=== PATIENT | female | born 1970 | race Caucasian/White ===

== ENCOUNTER 2024-03-11 21:02 | Inpatient (IN) | payer MEDICAID ==
[~2024-03-11] VITALS: Ht 170.2 cm; Wt 87.5 kg
[2024-03-11] MEDS ORDERED: HALOPERIDOL 5 MG TABLET PO PRN (21:15)
[2024-03-11] MEDS ORDERED: FLUO-418 PO (23:45)
[2024-03-12] MEDS: ZOLPIDEM TARTRATE 10 MG TABLET PO PRN (04:16)
[2024-03-12 04:33] VITALS: BP 128/70; PULSE 62; RESP 17; TEMP 97.5; O2SAT 98
[2024-03-12] MEDS ORDERED: CloNIDine HCL 0.1 MG TABLET PO PRN (06:30)
[2024-03-12] MEDS ORDERED: IBUPROFEN 400 MG TABLET PO PRN (06:30)
[2024-03-12] MEDS ORDERED: ALBUTEROL SULFATE HFA 90 MCG/PUFF 8 GM INHALER IH PRN (06:30)
[2024-03-12] MEDS ORDERED: MAGNESIUM HYDROXIDE SUSPENSION 30 ML UDCUP PO PRN (06:30)
[2024-03-12] MEDS ORDERED: PETROLATUM,WHITE 28 GM JELLY TP PRN (06:30)
[2024-03-12] MEDS ORDERED: GuaiFENesin/D-METHORPHAN [SUGAR-FREE] 200-20MG/10 ML SYRUP UDCUP PO PRN (06:30)
[2024-03-12] MEDS ORDERED: DOCUSATE SODIUM 100 MG CAPSULE PO PRN (06:30)
[2024-03-12] MEDS ORDERED: ONDANSETRON HCL 4 MG TABLET PO PRN (06:30)
[2024-03-12] MEDS ORDERED: MAG HYDROX/ALUMINUM HYD/SIMETH ES 30 ML SUSPENSION UDCUP PO PRN (06:30)
[2024-03-12] MEDS ORDERED: NICOTINE 14 MG/24 HOUR PATCH TD PRN (06:30)
[2024-03-12] MEDS ORDERED: LOPERAMIDE HCL 2 MG CAPSULE PO PRN (06:30)
[2024-03-12] MEDS ORDERED: ACETAMINOPHEN 325 MG TABLET PO PRN (06:30)
[2024-03-12 08:49] VITALS: BP 116/74; PULSE 67; RESP 15; TEMP 97.6; O2SAT 96
[2024-03-12 11:12] LABS: BASOPHILS % (AUTO) 0.4 % (0.0-2.0); EOSINOPHILS % (AUTO) 1.3 % (1.0-6.0); HEMOGLOBIN 12.8 g/dL (12.0-16.0); LYMPHOCYTES # (AUTO) 1.4 K/uL (1.0-4.8); LYMPHOCYTES % (AUTO) 43.2 % (22.0-44.0); MEAN CORPUSCULAR HEMOGLOBIN 31.6 pg (26.0-34.0); MEAN CORPUSCULAR HGB CONC 33.6 G/dL (31.0-37.0); MEAN CORPUSCULAR VOLUME 94 fL (80-100); MONOCYTES # (AUTO) 0.2 K/uL (0.1-1.0); MONOCYTES % (AUTO) 7.4 % (2.0-9.0); NEUTROPHILS # (AUTO) 1.6 K/uL (1.8-7.7); NEUTROPHILS % (AUTO) 47.7 % (40.0-70.0); PLATELET COUNT (AUTO) 237 K/uL (150-450); RED BLOOD CELL COUNT(AUTO) 4.04 MIL/uL (4.00-5.20); RED CELL DISTRIBUTION WIDTH 12.3 % (11.5-14.5); WHITE BLOOD COUNT (AUTO) 3.3 K/uL (4.5-11.0)
[2024-03-12] MEDS: DULoxetine HCL 20 MG CAPSULE PO SCH (11:18)
[2024-03-12 11:22] LABS: APPEARANCE,URINE CLEAR (CLEAR); BILIRUBIN,URINE NEGATIVE (NEGATIVE); COLOR,URINE LIGHT YELLOW (YELLOW); GLUCOSE, URINE (UA) NEGATIVE (NEGATIVE); KETONES,URINE NEGATIVE (NEGATIVE); LEUKOCYTE ESTERASE ,URINE MODERATE (NEGATIVE); NITRATE,URINE NEGATIVE (NEGATIVE); OCCULT BLOOD,URINE NEGATIVE (NEGATIVE); PROTEIN,URINE NEGATIVE (NEGATIVE); SPECIFIC GRAVITIY, URINE 1.019 (1.003-1.030); UROBILINOGEN,URINE <=1.0 mg/dL (<=1.0)
[2024-03-12 11:52] LABS: HEMOGLOBIN A1C 5.3 % (3.8-5.6)
[2024-03-12 11:54] LABS: ALCOHOL, URINE DRUG SCREEN NEGATIVE (NEGATIVE); AMPHET/METH SCREEN,URINE NEGATIVE (NEGATIVE); BARBITURATE SCREEN, URINE NEGATIVE (NEGATIVE); BENZODIAZEPINES SCREEN,URINE NEGATIVE (NEGATIVE); CANNABINOID SCREEN,URINE NEGATIVE (NEGATIVE); COCAINE SCREEN,URINE NEGATIVE (NEGATIVE); METHADONE SCREEN, URINE NEGATIVE (NEGATIVE); OPIATE SCREEN,URINE NEGATIVE (NEGATIVE); PHENCYCLIDINE SCREEN,URINE NEGATIVE (NEGATIVE)
[2024-03-12 12:11] LABS: ALANINE AMINOTRANSFERASE 34 U/L (12-78); ALKALINE PHOSPHATASE 127 U/L (46-116); ANION GAP 3 mmol/L (8-16); ASPARTATE AMINOTRANSFERASE 24 U/L (15-37); BILIRUBIN,TOTAL 0.3 mg/dL (0.1-1.0); CALCIUM, TOTAL 9.2 mg/dL (8.8-10.5); CARBON DIOXIDE 31 mmol/L (22-29); CHLORIDE 105 mmol/L (98-107); CHOL/HDL RATIO 4.6 (3.9-5.7); CHOLESTEROL 195 mg/dL (131-200); CREATININE 0.72 mg/dL (0.60-1.30); FREE T4 (FREE THYROXINE) 0.99 ng/dL (0.76-1.46); GLOMERULAR FILTR. RATE CALC > 60 mL/min (>60); GLUCOSE,RANDOM 86 mg/dL (70-110); HDL CHOLESTEROL 42 mg/dL (40-60); LDL CHOL (CALC.) 118 mg/dL (0-130); POTASSIUM 3.7 mmol/L (3.5-5.1); SODIUM SERUM 139 mmol/L (136-145); TOTAL PROTEIN, SERUM 6.4 g/dL (6.4-8.2); TRIGLYCERIDES 176 mg/dL (15-150); UREA NITROGEN, BLOOD 11 mg/dL (7-18)
[2024-03-12 13:03] LABS: BACTERIA,URINE None Seen /HPF (None Seen); RBC,URINE None Seen /HPF (0-2); SQUAMOUS EPITHELIAL CELL,UR Few /LPF (None Seen)
[2024-03-12 20:11] VITALS: BP 119/71; PULSE 66; RESP 18; TEMP 98
[2024-03-12] MEDS: LORazepam 2 MG TABLET PO PRN (20:44)
[2024-03-13 08:19] LABS: HEMOGLOBIN A1C 5.4 % (3.8-5.6)
[2024-03-13 08:42] LABS: CHOL/HDL RATIO 4.3 (3.9-5.7); THYROID STIMULATING HORMONE 0.5 uIU/mL (0.36-3.74)
[2024-03-13 08:52] VITALS: BP 121/72; PULSE 71; RESP 17; TEMP 97.8; O2SAT 95
[2024-03-13 20:00] VITALS: BP 121/91; PULSE 78; RESP 16; TEMP 97; O2SAT 95
[2024-03-14 08:58] VITALS: BP 122/74; PULSE 87; RESP 18; TEMP 97.4; O2SAT 96
[2024-03-14] MEDS ORDERED: DULO20CA71 PO (12:44)
== END 2024-03-14 14:40 | disposition home or self-care (01) | DRG 751 ==
LOC: B2S 21:19
PROVIDERS: ADMIT Psychiatry & Neurology Psychiatry; ATTEND Psychiatry & Neurology Psychiatry
PROC: GZHZZZZ Group Psychotherapy (ICD-10-PCS; principal; 2024-03-12)
PROC: GZ58ZZZ Individual Psychotherapy, Cognitive-Behavioral (ICD-10-PCS; 2024-03-12)
PROC: GZ56ZZZ Individual Psychotherapy, Supportive (ICD-10-PCS; 2024-03-12)
DX: F33.2 Major depressive disorder, recurrent severe without psychotic features (principal); D72.819 Decreased white blood cell count, unspecified; E78.5 Hyperlipidemia, unspecified; F41.9 Anxiety disorder, unspecified; G47.00 Insomnia, unspecified; I10 Essential (primary) hypertension; Z88.0 Allergy status to penicillin
CPT/HCPCS: 80053; 80061; 80307; 81001; 83036; 84439; 84443; 85025

== ENCOUNTER 2024-03-11 23:36 | Emergency (ER) | payer MEDICAID ==
[~2024-03-11] VITALS: Ht 170.2 cm; Wt 87.7 kg
[2024-03-11] MEDS ORDERED: FLUO-418 PO (23:45)
[2024-03-11 23:58] VITALS: TEMP 97.5
[2024-03-12 00:20] LABS: BASOPHILS % (AUTO) 1.1 % (0.0-2.0); EOSINOPHILS % (AUTO) 1.2 % (1.0-6.0); HEMATOCRIT 37.1 % (36-46); HEMOGLOBIN 12.2 g/dL (12.0-16.0); LYMPHOCYTES # (AUTO) 2.3 K/uL (1.0-4.8); LYMPHOCYTES % (AUTO) 48.3 % (22.0-44.0); MEAN CORPUSCULAR HEMOGLOBIN 31.2 pg (26.0-34.0); MEAN CORPUSCULAR HGB CONC 32.9 G/dL (31.0-37.0); MEAN CORPUSCULAR VOLUME 95 fL (80-100); MONOCYTES # (AUTO) 0.3 K/uL (0.1-1.0); MONOCYTES % (AUTO) 5.7 % (2.0-9.0); NEUTROPHILS # (AUTO) 2.1 K/uL (1.8-7.7); NEUTROPHILS % (AUTO) 43.7 % (40.0-70.0); PLATELET COUNT (AUTO) 275 K/uL (150-450); RED BLOOD CELL COUNT(AUTO) 3.91 MIL/uL (4.00-5.20); RED CELL DISTRIBUTION WIDTH 12.4 % (11.5-14.5); WHITE BLOOD COUNT (AUTO) 4.7 K/uL (4.5-11.0)
[2024-03-12 00:30] LABS: ANION GAP 8 mmol/L (8-16); CALCIUM, TOTAL 9.5 mg/dL (8.8-10.5); CARBON DIOXIDE 29 mmol/L (22-29); CHLORIDE 103 mmol/L (98-107); CREATININE 0.97 mg/dL (0.60-1.30); GLOMERULAR FILTR. RATE CALC 60 mL/min (>60); GLUCOSE,RANDOM 97 mg/dL (70-110); POTASSIUM 4.2 mmol/L (3.5-5.1); SODIUM SERUM 140 mmol/L (136-145); UREA NITROGEN, BLOOD 11 mg/dL (7-18)
[2024-03-12 00:40] LABS: ALCOHOL, BLOOD (SERUM) < 3 mg/dL (0-10)
[2024-03-12 01:14] LABS: COVID AG,FIA SOURCE NASAL SWAB
[2024-03-12 01:17] VITALS: BP 125/64; PULSE 70; RESP 16
[2024-03-12 01:27] LABS: SARS-COV2 (COVID) ANTIGEN,FIA Negative (Negative)
== END 2024-03-12 03:09 | disposition admitted as inpatient to this hospital (09) ==
LOC: EMS 23:37
DX: F32.9 Major depressive disorder, single episode, unspecified (principal); Z98.890 Other specified postprocedural states; Z88.0 Allergy status to penicillin; Z20.822 Contact with and (suspected) exposure to COVID-19
CPT/HCPCS: 99285; 87426; 80048; 85025; 36415; G0480

== ENCOUNTER 2024-09-17 10:45 | Emergency (ER) | payer OTHER ==
[~2024-09-17] VITALS: Ht 167.6 cm; Wt 77.3 kg
[~2024-09-17 10:45] MED LIST: DULO20CA71 PO
[2024-09-17 10:50] VITALS: TEMP 97.7
[2024-09-17] MEDS ORDERED: GABA-1216 PO ×2 (10:56)
[2024-09-17] MEDS ORDERED: RISE35TA PO (10:56)
[2024-09-17] MEDS ORDERED: MELO-107 PO (10:56)
[2024-09-17] MEDS ORDERED: CYCL-448 PO (10:56)
[2024-09-17] MEDS ORDERED: ASPI-1450 PO (10:56)
[2024-09-17] MEDS ORDERED: SENN-376 PO (10:56)
[2024-09-17] MEDS ORDERED: ALBU18HF12 IH (10:56)
[2024-09-17] MEDS: OxyCODONE HCL/ACETAMINOPHEN 5-325 MG TABLET PO ONE (12:15)
[2024-09-17] MEDS: DOXYCYCLINE HYCLATE 100 MG TABLET PO ONE (12:16)
[2024-09-17 13:00] VITALS: BP 114/79; PULSE 91; RESP 16; O2SAT 100
[2024-09-17] MEDS ORDERED: DOXY100C61 PO (13:00)
[2024-09-17] MEDS ORDERED: IBUP-1492 PO (13:13)
[2024-09-17] MEDS ORDERED: ACET-66 PO (13:14)
== END 2024-09-17 13:13 | disposition home or self-care (01) ==
LOC: EMS 10:51
DX: L02.512 Cutaneous abscess of left hand (principal); F32.A Depression, unspecified; Z88.0 Allergy status to penicillin; Z79.899 Other long term (current) drug therapy; Z79.82 Long term (current) use of aspirin; Z71.6 Tobacco abuse counseling
CPT/HCPCS: 99283

== ENCOUNTER 2025-06-18 14:52 | Emergency (ER) | payer OTHER ==
[~2025-06-18] VITALS: Ht 170.2 cm; Wt 79.5 kg
[~2025-06-18 14:52] MED LIST changes: +ACET-66 PO; +ALBU18HF12 IH; +ASPI-1450 PO; +CYCL-448 PO; +DOXY-466 PO; +DULO20CA23 PO; -DULO20CA71 PO; +GABA-1216 PO; +IBUP-1492 PO; +MELO-107 PO; +RISE35TA PO; +SENN-376 PO
[2025-06-18 15:00] VITALS: BP 160/114; PULSE 94; RESP 18; TEMP 98.1; O2SAT 99
[2025-06-18] MEDS ORDERED: LIDOCAINE/PF 1% 2 ML VIAL IM ONE (17:00)
[2025-06-18] MEDS ORDERED: CefTRIAXone SODIUM 1 GM/VIAL IM ONE (17:00)
[2025-06-18] MEDS ORDERED: DOXYCYCLINE HYCLATE 100 MG TABLET PO ONE (17:00)
== END 2025-06-18 18:39 | disposition home or self-care (01) ==
LOC: EMS 14:52
DX: T74.21XA Adult sexual abuse, confirmed, initial encounter (principal); K59.09 Other constipation; F32.A Depression, unspecified; Z86.73 Personal history of transient ischemic attack (TIA), and cerebral infarction without residual deficits; Z79.82 Long term (current) use of aspirin; Z88.0 Allergy status to penicillin; Z91.048 Other nonmedicinal substance allergy status; Z79.899 Other long term (current) drug therapy; Z98.890 Other specified postprocedural states; Y92.89 Other specified places as the place of occurrence of the external cause
CPT/HCPCS: 99282; Z7502

== ENCOUNTER 2025-08-13 15:59 | Emergency (ER) | payer OTHER ==
[~2025-08-13] VITALS: Ht 170.2 cm; Wt 77.3 kg
[2025-08-13 16:01] VITALS: TEMP 98.4
[2025-08-13 18:23] VITALS: BP 136/90; PULSE 86; RESP 18; O2SAT 97
== END 2025-08-13 18:24 | disposition home or self-care (01) ==
LOC: EMS 15:59
DX: M25.561 Pain in right knee (principal); F32.A Depression, unspecified; Z98.890 Other specified postprocedural states; Z88.0 Allergy status to penicillin; Z91.048 Other nonmedicinal substance allergy status; Z86.73 Personal history of transient ischemic attack (TIA), and cerebral infarction without residual deficits; Z79.82 Long term (current) use of aspirin; Z79.899 Other long term (current) drug therapy
CPT/HCPCS: 99284; Z7502